=== PATIENT | female | born 1980 | race Caucasian/White ===

== ENCOUNTER → 2021-07-14 09:25 | Outpatient (BNVA) | payer BC, SELFPAY | PROVIDERS: PCP Internal Medicine; Visit Provider Internal Medicine | DX: E04.2 Nontoxic multinodular goiter (principal); E20.9 Hypoparathyroidism, unspecified; N92.6 Irregular menstruation, unspecified; E55.9 Vitamin D deficiency, unspecified; Z79.899 Other long term (current) drug therapy | CPT/HCPCS: 99202 ==

== ENCOUNTER 2021-07-31 08:22 | Outpatient (REF) | payer BC, SELFPAY ==
[2021-07-31 09:38] LABS: Estimated Average Glucose 105 mg/dL; Hemoglobin A1c % 5.3 %
[2021-07-31 09:55] LABS: Glucose Fasting 113 mg/dL (60-99)
[2021-07-31 10:04] LABS: Alanine Aminotransferase 16 U/L (0-31); Albumin Level 4.4 g/dL (3.5-5.0); Alkaline Phosphatase 60 U/L (39-117); Anion Gap 10 (12-20); Aspartate Amino Transferase 16 U/L (5-31); Bilirubin Total 0.5 mg/dL (0.0-1.0); Blood Urea Nitrogen 9 mg/dL (9-16); Calcium 8.8 mg/dL (8.4-10.2); Carbon Dioxide 23 mmol/L (22-29); Chloride 111 mmol/L (96-108); Cholesterol 151 mg/dL; Estimated Glomerular Filt Rate > 60; Glucose Random 110 mg/dL (60-115); HDL Cholesterol 42 mg/dL; LDL Cholesterol Calculated 95 mg/dl; Potassium 3.9 mmol/L (3.3-5.1); Sodium 140 mmol/L (135-145); Total Protein 7.3 g/dL (6.5-8.0); Triglycerides 72 mg/dL
[2021-07-31 10:11] LABS: Cortisol Random 5.9 ug/dL
[2021-07-31 10:14] LABS: Free T4 (Free Thyroxine) 0.98 ng/dL (0.71-1.85); HCG Quantitative < 2 mIU/mL; Thyroid Stimulating Hormone 0.73 uIU/mL (0.32-4.0); Vitamin D 25-OH Total 16.4 ng/mL (>30)
[2021-07-31 11:46] LABS: Glucose 1 Hour 208 mg/dL
[2021-07-31 11:51] LABS: Glucose 2 Hour 147 mg/dL
[2021-08-01 06:37] LABS: LDL Cholesterol Direct 94 mg/dL (<100)
[2021-08-01 08:31] LABS: DHEA Sulfate 164 mcg/dL (15-205); Follicle Stimulating Hormone 6.8 mIU/mL; Lutenizing Hormone 0.9 mIU/mL; Prolactin 6.9 ng/mL
[2021-08-02 16:25] LABS: Thyroglobulin 8.9 ng/mL
[2021-08-02 20:31] LABS: Sex Hormone Binding Globulin 21 nmol/L (17-124)
[2021-08-03 06:12] LABS: Thyroid Peroxidase Antibodies 1 IU/mL (<9)
[2021-08-03 18:16] LABS: Adrenocorticotropic Hormone 8 pg/mL (6-50)
[2021-08-06 16:07] LABS: Androstenedione 40 ng/dL
[2021-08-06 22:41] LABS: Testosterone, Free 1.2 pg/mL (0.1-6.4); Testosterone, Total 7 ng/dL (2-45)
[2021-08-07 19:32] LABS: Estradiol Ultra Sensitive 4 pg/mL
== END 2021-07-31 08:23 | disposition home or self-care (01) ==
LOC: HO.LAB 08:22
PROVIDERS: PCP Internal Medicine; Visit Provider Internal Medicine
DX: N92.6 Irregular menstruation, unspecified (principal); E04.2 Nontoxic multinodular goiter; E55.9 Vitamin D deficiency, unspecified
CPT/HCPCS: 36415; 80053; 80061; 82024; 82157; 82306; 82533; 82627; 82670; 83001; 83002; 83036; 83498; 83721; 84146; 84270; 84402; 84403; 84432; 84439; 84443; 84702; 86376

== ENCOUNTER 2021-08-05 14:29 | Outpatient (REF) | payer BC, SELFPAY ==
--- NOTE | ~2021-08-05 | US_ITS ---
EXAMINATION: US THYROID CLINICAL INFORMATION: Nontoxic multinodular goiter. COMPARISON: Ultrasound thyroid 05/12/2020 TECHNIQUE: Linear transducer grayscale and color Doppler examination with attention to the region of the thyroid. FINDINGS: SIZE: Measurements of the thyroid lobes and nodules are given in sagittal, anteroposterior and transverse dimensions respectively. Right Thyroid Lobe: 6.0 x 1.4 x 1.5 cm, volume 6.9 mL. Parenchyma: The gland echotexture is heterogeneous. Thyroid vascularity is normal. Left Thyroid Lobe: 5.97 X 1.72 x 1.46 cm, volume 7.9 mL. Parenchyma: The gland echotexture is heterogeneous. Thyroid vascularity is normal. Isthmus: 0.42 cm in maximum AP dimension. Estimated total number of nodules greater than or equal to 1 cm: 2. Third Loader nodules are described as follows: 1. Location: Isthmus Size: 1.1 x 0.74 x 1.0 cm, volume 0.43 mL. Nodule characteristics: Composition: 3 Echogenicity: Hypoechoic Shape: Wider Margins: Smooth (0). Echogenic Foci: Punctate echogenic foci (3). ACR TI-RADS total points: 7 ACR TI-RADS category: 5 2. Location: Right upper pole. Size: 2.1 x 0.83 x 1.0 cm, volume 0.94 mL. Nodule characteristics: Composition: Mixed cystic and solid (1). Echogenicity: Anechoic (0). Shape: Wider Margins: Smooth (0). Echogenic Foci: Rim calcification ACR TI-RADS total points: 3 ACR TI-RADS category: 3 3. Location: Right midpole. Size: 1.0 x 0.72 x 0.90 cm, volume 0.34 mL. Nodule characteristics: Composition: Solid (2). Echogenicity: Hypoechoic Shape: Wider Margins: Smooth (0). Echogenic Foci: None (0). ACR TI-RADS total points: 5 ACR TI-RADS category: 4 4. Location: Right midpole. Size: 0.60 x 0.53 x 0.50 cm, volume 0.8 mL. Nodule characteristics: Composition: Cystic(0). Echogenicity: Anechoic (0). Shape: Wider Margins: Round Echogenic Foci: None (0). ACR TI-RADS total points: 0 ACR TI-RADS category: 1 5. Location: Left upper pole. Size: 1.4 x 0.70 x 0.58 cm. Volume 0.29 mL. Nodule characteristics: Composition: Cystic Echogenicity: Anechoic Shape: Round Margin: Smooth. Echogenic foci: None ACR TI-RADS total points: 0 ACR TI-RADS category: 0. NODES: No lymphadenopathy is seen in the tissue surrounding the thyroid gland. US/US thyroid IMPRESSION: 1. Bilateral thyroid nodules the largest in the left upper pole is not suspicious. The rest of the nodules are nonsuspicious based on TI-RADS scoring. 2. Mild thyroid enlargement with heterogeneous appearance. ACR TI-RADS RECOMMENDATION REFERENCE: Ultrasound-guided fine-needle aspiration, followup ultrasound, no further follow up. * TR1 (0 point) and TR 2 (2 points): No FNA or follow up * TR3 (3 points): FNA if more than or equal to 2.5 cm in maximum dimension, followup ultrasound in 1, 3 and 5 years if 1.5 to 2.4 cm in maximum dimension. * TR4 (4-6 points): FNA if more than or equal to 1.5 cm in maximum dimension, followup ultrasound in 1, 2, 3 and 5 years if 1 to 1.4 cm in maximum dimension. * TR5 (more than or equal to 7 points): FNA if more than or equal to 1 cm in maximum dimension, followup ultrasound every year for 5 years if 0.5 to 0.9 cm in maximum dimension. * TR3, TR4 or TR5 nodules that are below the size threshold for follow up receive no follow up.
== END 2021-08-05 14:30 | disposition home or self-care (01) ==
LOC: HO.HMGCX 14:29
PROVIDERS: PCP Internal Medicine; Visit Provider Internal Medicine
DX: E04.2 Nontoxic multinodular goiter (principal)
CPT/HCPCS: 76536

== ENCOUNTER → 2021-08-23 09:04 | Outpatient (BNVA) | payer BC, SELFPAY | PROVIDERS: PCP Internal Medicine; Visit Provider Internal Medicine | DX: Z13.89 Encounter for screening for other disorder (principal) ==

== ENCOUNTER 2021-08-31 07:18 | Outpatient (REF) | payer BC, SELFPAY ==
[2021-08-31 09:17] LABS: Cortisol Random 7.7 ug/dL
[2021-09-02 10:26] LABS: CA 125 New Method 6 U/mL (<35); CA-125 6 U/mL (<35)
[2021-09-02 12:42] LABS: Adrenocorticotropic Hormone 6 pg/mL (6-50)
== END 2021-08-31 07:19 | disposition home or self-care (01) ==
LOC: HO.LAB 07:18
PROVIDERS: Absent Provider Internal Medicine; PCP Internal Medicine; Visit Provider Internal Medicine
DX: N83.202 Unspecified ovarian cyst, left side (principal); N92.6 Irregular menstruation, unspecified
CPT/HCPCS: 36415; 82024; 82533; 86304

== ENCOUNTER → 2021-10-21 12:52 | Outpatient (BNVA) | payer BC, SELFPAY | PROVIDERS: PCP Internal Medicine; Visit Provider Dietitian, Registered | DX: E66.9 Obesity, unspecified (principal); R73.03 Prediabetes; Z68.31 Body mass index [BMI] 31.0-31.9, adult | CPT/HCPCS: 97802 ==

== ENCOUNTER 2021-11-22 07:55 | Outpatient (REF) | payer BC, SELFPAY ==
[2021-11-23 07:26] LABS: Cortisol 30 Minute 31.2 mcg/dL; Cortisol 60 Minute 34.5 mcg/dL; Cortisol Baseline 11.9 mcg/dL
[2021-11-23 20:57] LABS: Adrenocorticotropic Hormone 14 pg/mL (6-50)
== END 2021-11-22 07:56 | disposition home or self-care (01) ==
LOC: HO.MDS 07:55
PROVIDERS: Visit Provider Internal Medicine
DX: E27.40 Unspecified adrenocortical insufficiency (principal)
CPT/HCPCS: 36415; 82024; 82533; 96374; J0834

== ENCOUNTER → 2021-12-20 13:23 | Outpatient (BNVA) | payer BC, SELFPAY | PROVIDERS: PCP Internal Medicine; Visit Provider Dietitian, Registered | DX: E66.9 Obesity, unspecified (principal); R73.03 Prediabetes; Z71.3 Dietary counseling and surveillance | CPT/HCPCS: 97803 ==

== ENCOUNTER 2022-02-17 07:56 | Outpatient (REF) | payer BC, SELFPAY ==
--- NOTE | 2022-02-17 08:56 | PM.OP ---
Brief Operative Note Date of Service: 02/17/22 Pre-op diagnosis: Multinodular Thyroid Procedure: This is doctor Shaista Thompson. This is an ultrasound-guided fine-needle aspiration report. Date of Examination: 02/17/2022 Indication: Multinodular Thyroid Porcedure: Procedure was explained to the patient. Alternatives, the risk and benefits were discussed. Written consent was obtained. A time-out was also obtained. After sterile preparation, fine-needle aspiration of an isthmus 1.1 cm thyroid nodule was performed using direct ultrasound guidance to confirm accurate needle placement. Three aspirations were made using 27 gauge needles. Samples were submitted for cytology. One pass was dedicated for [employer] sequencing rn physician office testing. The patient tolerated the procedure well. Aftercare instructions were provided. Impression: Uncomplicated fine needle aspiration biopsy of an isthmus 1.1 cm thyroid nodule under ultrasound guidance. Of note, US was completed of her thyroid and the remaining nodules did not meet indication for FNA biopsy. Her RMP nodule was a simple cyst as well as her LUP nodule. The remaining nodules were subcentimeter and did not meet indication for FNA biopsy. She does have a 0.9 cm RMP nodule with a slightly irregular border. Plan is to repeat US of the thyroid in 6 months time to monitor this, as it does not currently meet indication for FNA biopsy. Patient was in agreement with this plan of care. Surgeon: Shaista Thompson, DO Was an [employer] used for this Procedure?: No Estimated blood loss (mL): 0
== END 2022-02-17 07:57 | disposition home or self-care (01) ==
LOC: HO.US 07:56
PROVIDERS: PCP Internal Medicine; Visit Provider Internal Medicine
DX: E04.2 Nontoxic multinodular goiter (principal)
CPT/HCPCS: 10005; 88172; 88173

== ENCOUNTER 2022-03-03 14:53 | Emergency (ER) | payer BC, SELFPAY ==
--- NOTE | ~2022-03-03 | US_ITS ---
EXAMINATION: US VENOUS ULTRASOUND WITH DOPPLER LOWER EXTREMITY, RIGHT CLINICAL INFORMATION: Pain COMPARISON: None TECHNIQUE: Ultrasound of the deep veins is performed from the hip to the calf with compression sonography and color and pulse Doppler assessment. Spectral analysis with color-flow imaging is performed. FINDINGS: There is normal venous compression and respiratory variation and augmented flow. The visualized common femoral vein, superficial femoral vein, profunda femoral vein, popliteal vein, and the trifurcation region shows no evidence of deep venous thrombosis. There is no significant popliteal fossa cyst. If the patient's symptoms persist, followup ultrasound in 5 days 7 days might be of value to exclude proximal propagation from a non-visualized calf vein. US/US venous duplex LE RT IMPRESSION: No DVT demonstrated in the right lower extremity.
--- NOTE | ~2022-03-03 | XR_ITS ---
EXAMINATION: XR CHEST CLINICAL INFORMATION: Cough COMPARISON: None TECHNIQUE: 2 views of the chest were obtained. FINDINGS: The lungs are clear with no focal consolidation. No evidence of pneumothorax, pulmonary edema, or pleural effusions. The cardiomediastinal silhouette is unremarkable. No acute osseous findings. XR/XR chest 2V IMPRESSION: No acute cardiopulmonary findings.
--- NOTE | ~2022-03-03 | CT_ITS ---
EXAMINATION: CT ABDOMEN AND PELVIS WITH CONTRAST CLINICAL INFORMATION: Abnormal bleeding COMPARISON: None TECHNIQUE: Multidetector volumetric images were obtained from the superior aspect of the liver through the pubic symphysis following administration 85 mL of Omnipaque 350 intravenous contrast. Sagittal and coronal reformatted images were obtained on the technologist's workstation. Oral contrast: No This CT examination was performed using dose optimization techniques as appropriate, variously including the following: *Automated exposure control *Adjustment of mA and/or kV according to patient size (this includes techniques or standardized protocols for targeted exams where dose is matched to indication/reason for exam; i.e. extremities or head) *Use of iterative reconstruction technique DLP: 699 mGy-cm FINDINGS: LUNG BASES: Mild dependent atelectasis. LIVER, GALLBLADDER, AND BILIARY TREE: The liver is normal in size, shape, and attenuation. No focal hepatic lesion or biliary ductal dilatation is present. The gallbladder is unremarkable with no evidence of radiopaque gallstones, gallbladder wall thickening, or obvious pericholecystic inflammatory changes. PANCREAS: Unremarkable. SPLEEN: Unremarkable. ADRENAL GLANDS: Unremarkable. KIDNEYS AND URETERS: Bilateral nephrograms are symmetric. No obstructing calculus is seen. Mildly dilated renal pelvises and right ureter, of uncertain clinical significance. BLADDER: Unremarkable. GASTROINTESTINAL TRACT: No evidence of bowel obstruction or significant wall thickening. The appendix is unremarkable. No free air is seen. ABDOMINAL WALL: No significant hernia is appreciated. LYMPH NODES: Normal. VASCULAR: Unremarkable. PELVIC VISCERA: Unremarkable. Small volume of pelvic free fluid. OSSEOUS STRUCTURES: Unremarkable. CT/CT abdomen pelvis w IV con IMPRESSION: 1. Small volume of nonspecific pelvic free fluid, which may be physiologic. 2. Mildly dilated renal pelvises and right ureter, of uncertain clinical significance. No obstructing calculus is seen.
[2022-03-03 15:00] VITALS: BP 120/74; PULSE 110; O2SAT 99
[2022-03-03 15:04] VITALS: BP 114/84; PULSE 105; RESP 18; TEMP 37.2; O2SAT 99; BMI 31.0
[2022-03-03 16:00] LABS: Basophils Percent Auto 0.2 % (0-2); Eosinophils Percent Auto 0.1 % (0-4); Hematocrit 44.2 % (37.0-47.0); Hemoglobin 14.8 g/dl (12.0-16.0); Imm Gran Abs Auto 0.05 X10*3/uL (0.00-0.03); Imm Gran Pct Auto 0.4 % (0.0-0.4); Lymphocytes Absolute Auto 0.4 X10*3/uL (1.2-4.9); Lymphocytes Percent Auto 2.8 % (20-40); MANUAL DIFF FLAG SCAN; Mean Corpuscular HGB Conc 33.5 g/dl (31.0-35.0); Mean Corpuscular Hemoglobin 30.8 pg (27.0-33.0); Mean Corpuscular Volume 91.9 fL (80.0-98.0); Monocytes Absolute Auto 0.3 X10*3/uL (0.1-1.2); Monocytes Percent Auto 2.5 % (2-11); Neutrophils Absolute Auto 11.9 x10*3/uL (2.0-8.3); Platelet Count 219 X10*3/uL (160-400); Red Blood Count 4.81 X10*6/uL (4.20-5.50); Red Cell Distribution Width 12.5 % (11.0-16.0); SCAN SMEAR FLAG 1; White Blood Count 12.7 X10*3/uL (4.8-10.8)
[2022-03-03 16:11] LABS: D Dimer High Sensitivity < 150 NG/ML
[2022-03-03 16:14] LABS: Alanine Aminotransferase 23 U/L (0-31); Albumin Level 4.7 g/dL (3.5-5.0); Alkaline Phosphatase 73 U/L (39-117); Anion Gap 15 (12-20); Aspartate Amino Transferase 19 U/L (5-31); Bilirubin Direct 0.3 mg/dL (0.0-0.5); Bilirubin Total 0.6 mg/dL (0.0-1.0); Blood Urea Nitrogen 10 mg/dL (9-16); Calcium 9.4 mg/dL (8.4-10.2); Carbon Dioxide 21 mmol/L (22-29); Chloride 107 mmol/L (96-108); Creatinine Clr Calc Pharmacy 100.9; Estimated Glomerular Filt Rate > 60; Glucose Random 109 mg/dL (60-115); Potassium 4.3 mmol/L (3.3-5.1); Sodium 139 mmol/L (135-145); Total Protein 7.7 g/dL (6.5-8.0)
[2022-03-03 16:18] LABS: SLIDE REVIEW VERIFIED
[2022-03-03 18:51] VITALS: BP 120/57; PULSE 110; RESP 18; TEMP 36.4; O2SAT 99
--- NOTE | 2022-03-03 21:50 | ED_ITS ---
HPI - General Adult General Chief complaint: General Medical Stated complaint: LOW BP 120/74, HIGH HR [address] NICOLE PER EMS Time Seen by Provider: 03/03/22 21:50 Source: patient Mode of arrival: ambulatory Limitations: no limitations History of Present Illness HPI narrative: 41-year-old female presents for evaluation of hypotension, warm red calf on the right side, intermittent finger numbness, and abnormal vaginal bleeding for over a year. Onset (ago): year(s) Severity: mild Associated symptoms: denies other symptoms Related Data Home Medications Medication Instructions Recorded Confirmed etonogestrel 0.12 mg-ethinyl 1 vag ring vaginal Q4W 07/14/21 03/03/22 estradiol 0.015 mg/24 hr vaginal ring (NuvaRing) ferrous fumarate 325 mg (106 mg 325 mg PO DAILY 07/14/21 03/03/22 iron) tablet multivitamin (Multiple Vitamins 1 tab PO DAILY 07/14/21 03/03/22 tablet) Previous Rx's Medication Instructions Recorded cholecalciferol (vitamin D3) 50 50 mcg PO DAILY 30 days #30 caps 08/23/21 mcg (2,000 unit) capsule Allergies Allergy/AdvReac Type Severity Reaction Status Date / Time metronidazole Allergy Mild Swelling Verified 03/03/22 13:42 Penicillins Allergy Mild Swelling Verified 03/03/22 13:42 sulfamethoxazole Allergy Swelling Verified 03/03/22 13:42 [From Bactrim] trimethoprim [From Bactrim] Allergy Swelling Verified 03/03/22 13:42 Review of Systems Review of Systems: Constitutional: Positive hypotension, No Fever, No Chills ENT/Mouth: No Ear Pain, No Hoarseness, No sore throat Eyes: No Eye Pain, No Swelling, No Redness, No Foreign Body Cardiovascular: No Chest Pain, No SOB Respiratory: No Cough, No Dyspnea Gastrointestinal: No Nausea, No Vomiting, No Diarrhea, No abdominal Pain Genitourinary: Positive abnormal vaginal bleeding, No Dysuria, No Hematuria Musculoskeletal: No joint pain, No Myalgias, No Joint Swelling Skin: No Skin lacerations, No rash Neuro: No Weakness, positive right middle finger Numbness, No Paresthesias, No Loss of Consciousness, No Dizziness, No Headache Psych: No Anxiety/Panic, No Depression Heme/Lymph: no easy bruising, no Lymphadenopathy Endocrine: No Polyuria, No Polydipsia Yes all other systems are reviewed and are negative [facility] Past Medical History Attestation statement: The following information was validated with the patient. Source: old records reviewed Medical History (Updated 03/04/22 @ 01:08 by Miracle Damon NP) Hypotension Iron deficiency anemia Irregular menses Multinodular thyroid Obesity Prediabetes Vitamin D deficiency Surgical History Hx of vaginal surgery Family History Family History Father Medical history unknown Mother Medical history unknown Diabetes mellitus Paternal Uncle Cancer Diabetes mellitus Social History Social History Alcohol intake: current Alcohol intake frequency: does not drink Patient Tobacco Use Status: Never used Tobacco Advance Directives: No Advance Directives Information Provided: No Physical Exam ED Vital Signs: Vital Signs - 24 hr 03/03/22 15:04 03/03/22 18:51 03/03/22 22:30 Temperature 98.9 F 97.6 F Pulse Rate 105 H 110 H 98 Respiratory Rate 18 18 Blood Pressure 114/84 120/57 L 128/68 Pulse Oximetry 99 99 Oxygen Delivery Method Room Air Room Air 03/03/22 22:31 03/03/22 22:32 Temperature Pulse Rate 103 H 111 H Respiratory Rate Blood Pressure 136/70 126/76 Pulse Oximetry Oxygen Delivery Method BMI result Body Mass Index 31.0 Appearance: Alert. Oriented X3. No acute distress. Eyes: Pupils equal, round and reactive to light. ENT: Pharynx normal. Neck: Normal inspection. Neck supple. CVS: Tachycardic heart rate and rhythm. Pulses normal. Respiratory: No respiratory distress. Breath sounds normal. Abdomen: Soft and nontender. Skin: Skin warm and dry. Normal skin color. Normal skin turgor. Extremities: No lower extremity edema. Gait well-balanced well coordinated. Neuro: No motor deficit. No sensory deficit. Cranial nerves 2-12 intact. Course Course Course Narrative: 41-year-old female presents with multiple concerns, was sent in from her primary care's office for hypotension, question of possible blood clot to the right lower extremity, intermittent finger numbness on the right hand, and abnormal vaginal bleeding. Patient has had abnormal vaginal bleeding for year and a half, since August of 2020, has had a D&C, and multiple workups with negative findings. For the intermittent numbness to the right middle finger, patient has had intermittent numbness to bilateral upper extremities while breast feeding, and was diagnosed with Raynaud's of the breast. There has been improvement of t he numbness since she has stopped , her child is now 4 years old. There was a concern for blood clot to the right lower extremity, will order venous duplex. D-dimer was less than 150 which is considered negative. Patient has had upper respiratory symptoms off and on for a few weeks, will order chest x-ray, COVID RSV and influenza test. Will order CT scan of abdomen pelvis with contrast for abnormal vaginal bleeding. Lab values are unremarkable, white count is 12.7 which could possibly be a reactive marker. H&H is within normal limits although patient does have some abnormal vaginal bleeding. Chest x-ray is negative for acute findings. COVID and influenza are negative. Venous duplex is negative. 01:30 CT scan of abdomen pelvis are negative for acute findings requiring emergent intervention. I did discuss this in detail with the patient, although she is relieved that there is nothing significantly wrong, she still does not have any answers about what is causing her symptoms. I did suggest the patient follow up with [facility] for dysfunctional uterine bleeding. Patient verbalized understanding of and agrees to plan of care discharge home. Verbaliz ed understanding of signs and symptoms indicating need for emergent intervention. Medical Decision Making MDM Narrative Medical decision making narrative: DVT, viral syndrome Differential Diagnosis Differential Diagnosis: Endometriosis, adenomyosis, uterine fibroids Medical Records Medical records reviewed: Yes I reviewed the patient's medical records. Lab Data Lab results reviewed: Yes I reviewed the patient's lab results. Result diagrams: 03/03/22 15:50 03/03/22 15:50 Labs: Lab Results 03/03/22 03/03/22 03/03/22 Range/Units 15:50 15:50 15:50 WBC 12.7 H (4.8-10.8) X10*3/uL RBC 4.81 (4.20-5.50) X10*6/uL Hgb 14.8 (12.0-16.0) g/dl Hct 44.2 (37.0-47.0) % MCV 91.9 (80.0-98.0) fL MCH 30.8 (27.0-33.0) pg MCHC 33.5 (31.0-35.0) g/dl RDW 12.5 (11.0-16.0) % Plt Count 219 (160-400) X10*3/uL MPV 9.0 L (9.4-12.3) fL Immature Gran % (Auto) 0.4 (0.0-0.4) % Neut % (Auto) 94.0 H (45-73) % Lymph % (Auto) 2.8 L (20-40) % [place] % (Auto) 2.5 (2-11) % Eos % (Auto) 0.1 (0-4) % Baso % (Auto) 0.2 (0-2) % Lymph # (Auto) 0.4 L (1.2-4.9) X10*3/uL [place] # (Auto) 0.3 (0.1-1.2) X10*3/uL Eos # (Auto) 0.0 (0.0-0.4) X10*3/uL Baso # (Auto) 0.0 (0.0-0.2) X10*3/uL Abs Immat Gran (auto) 0.05 H (0.00-0.03) X10*3/uL Absolute Neuts (auto) 11.9 H (2.0-8.3) x10*3/uL Absolute Nucleated RBC 0.000 (0.0-0.012) X10*3/uL Nucleated RBC % (auto) 0.0 (0.0-0.2) /100WBC Smear Tech's Comments VERIFIED D-Dimer High Sensitivty < 150 NG/ML Sodium 139 (135-145) mmol/L Potassium 4.3 (3.3-5.1) mmol/L Chloride 107 (96-108) mmol/L Carbon Dioxide 21 L (22-29) mmol/L Anion Gap 15 (12-20) BUN 10 (9-16) mg/dL Creatinine 0.76 (0.5-1.4) mg/dL Estim Creat Clear Calc 100.9 Estimated GFR > 60 Random Glucose 109 (60-115) mg/dL Calcium 9.4 D (8.4-10.2) mg/dL Total Bilirubin 0.6 (0.0-1.0) mg/dL Direct Bilirubin 0.3 (0.0-0.5) mg/dL AST 19 (5-31) U/L ALT 23 (0-31) U/L Alkaline Phosphatase 73 D (39-117) U/L Total Protein 7.7 (6.5-8.0) g/dL Albumin 4.7 (3.5-5.0) g/dL Beta HCG, Quant < 2 mIU/mL Influenza Type A (PCR) (Negative) Influenza Type B (PCR) (Negative) RSV RNA Qual (PCR) (Negative) SARS-CoV-2 RNA (RT-PCR) (Negative) 03/03/22 Range/Units 22:17 WBC (4.8-10.8) X10*3/uL RBC (4.20-5.50) X10*6/uL Hgb (12.0-16.0) g/dl Hct (37.0-47.0) % MCV (80.0-98.0) fL MCH (27.0-33.0) pg MCHC (31.0-35.0) g/dl RDW (11.0-16.0) % Plt Count (160-400) X10*3/uL MPV (9.4-12.3) fL Immature Gran % (Auto) (0.0-0.4) % Neut % (Auto) (45-73) % Lymph % (Auto) (20-40) % [place] % (Auto) (2-11) % Eos % (Auto) (0-4) % Baso % (Auto) (0-2) % Lymph # (Auto) (1.2-4.9) X10*3/uL [place] # (Auto) (0.1-1.2) X10*3/uL Eos # (Auto) (0.0-0.4) X10*3/uL Baso # (Auto) (0.0-0.2) X10*3/uL Abs Immat Gran (auto) (0.00-0.03) X10*3/uL Absolute Neuts (auto) (2.0-8.3) x10*3/uL Absolute Nucleated RBC (0.0-0.012) X10*3/uL Nucleated RBC % (auto) (0.0-0.2) /100WBC Smear Tech's Comments D-Dimer High Sensitivty NG/ML Sodium (135-145) mmol/L Potassium (3.3-5.1) mmol/L Chloride (96-108) mmol/L Carbon Dioxide (22-29) mmol/L Anion Gap (12-20) BUN (9-16) mg/dL Creatinine (0.5-1.4) mg/dL Estim Creat Clear Calc Estimated GFR Random Glucose (60-115) mg/dL Calcium (8.4-10.2) mg/dL Total Bilirubin (0.0-1.0) mg/dL Direct Bilirubin (0.0-0.5) mg/dL AST (5-31) U/L ALT (0-31) U/L Alkaline Phosphatase (39-117) U/L Total Protein (6.5-8.0) g/dL Albumin (3.5-5.0) g/dL Beta HCG, Quant mIU/mL Influenza Type A (PCR) NEGATIVE (Negative) Influenza Type B (PCR) NEGATIVE (Negative) RSV RNA Qual (PCR) NEGATIVE (Negative) SARS-CoV-2 RNA (RT-PCR) NEGATIVE (Negative) Imaging Data Chest x-ray: Attestation: I personally reviewed and interpreted this imaging study as follows: Radiologist's impression: EXAMINATION: XR CHEST CLINICAL INFORMATION: Cough COMPARISON: None TECHNIQUE: 2 views of the chest were obtained. FINDINGS: The lungs are clear with no focal consolidation. No evidence of pneumothorax, pulmonary edema, or pleural effusions. The cardiomediastinal silhouette is unremarkable. No acute osseous findings. XR/XR chest 2V IMPRESSION: No acute cardiopulmonary findings. ? Venous duplex: Attestation: I personally reviewed and interpreted this imaging study as follows: Radiologist's impression: EXAMINATION:? US VENOUS ULTRASOUND WITH DOPPLER LOWER EXTREMITY, RIGHT CLINICAL INFORMATION:? Pain COMPARISON:? None TECHNIQUE: Ultrasound of the deep veins is performed from the hip to the calf with compression sonography and color and pulse Doppler assessment. Spectral analysis with color-flow imaging is performed. FINDINGS: There is normal venous compression and respiratory variation and augmented flow. The visualized common femoral vein, superficial femoral vein, profunda femoral vein, popliteal vein, and the trifurcation region shows no evidence of deep venous thrombosis. ? There is no significant popliteal fossa cyst. If the patient's symptoms persist, followup ultrasound in 5 days 7 days might be of value to exclude proximal propagation from a non-visualized calf vein. US/US venous duplex LE RT IMPRESSION: No DVT demonstrated in the right lower extremity. CT abdomen pelvis: Attestation: I personally reviewed and interpreted this imaging study as follows: Radiologist's impression: EXAMINATION: CT ABDOMEN AND PELVIS WITH CONTRAST? CLINICAL INFORMATION: Abnormal bleeding? COMPARISON: None? TECHNIQUE: Multidetector volumetric images were obtained from the superior aspect of the liver through the pubic symphysis following administration 85 mL of Omnipaque 350 intravenous contrast. Sagittal and coronal reformatted images were obtained on the technologist's workstation.? Oral contrast: No This CT examination was performed using dose optimization techniques as appropriate, variously including the following: *Automated exposure control *Adjustment of mA and/or kV according to patient size (this includes techniques or standardized protocols for targeted exams where dose is matched to indication/reason for exam; i.e. extremities or head) *Use of iterative reconstruction technique DLP: 699 mGy-cm FINDINGS: LUNG BASES: Mild dependent atelectasis.? LIVER, GALLBLADDER, AND BILIARY TREE: The liver is normal in size, shape, and attenuation. No focal hepatic lesion or biliary ductal dilatation is present. The gallbladder is unremarkable with no evidence of radiopaque gallstones, gallbladder wall thickening, or obvious pericholecystic inflammatory changes.? PANCREAS: Unremarkable.? SPLEEN: Unremarkable.? ADRENAL GLANDS: Unremarkable.? KIDNEYS AND URETERS: Bilateral nephrograms are symmetric. No obstructing calculus is seen. Mildly dilated renal pelvises and right ureter, of uncertain clinical significance. BLADDER: Unremarkable.? GASTROINTESTINAL TRACT: No evidence of bowel obstruction or significant wall thickening. The appendix is unremarkable. No free air is seen. ABDOMINAL WALL: No significant hernia is appreciated.? LYMPH NODES: Normal. VASCULAR: Unremarkable. PELVIC VISCERA: Unremarkable. Small volume of pelvic free fluid. OSSEOUS STRUCTURES: Unremarkable.? CT/CT abdomen pelvis w IV con IMPRESSION: 1.? Small volume of nonspecific pelvic free fluid, which may be physiologic. 2.? Mildly dilated renal pelvises and right ureter, of uncertain clinical significance. No obstructing calculus is seen. Discharge Plan Discharge Clinical Impression: Irregular menses, Hypotension Patient Disposition: Home, Self-Care Instructions: Dysfunctional Uterine Bleeding (ED), Hypotension (ED) Additional Instructions: You were evaluated for multiple concerns. During your stay in the emergency department your blood pressure was normal. We ruled out DVT, blood clot, to the right leg with a venous duplex. Venous duplex was negative for acute findings. You were evaluated for abnormal vaginal bleeding, CT scan of abdomen pelvis with contrast is negative for acute findings. Pelvic organs are within normal limi ts, shows a small amount of free fluid which is an unremarkable finding. Your chest x-ray is negative for acute findings. COVID influenza RSV test is negative. [facility] in [place]. [facility] general number [phone]. Thank you for choosing this emergency department for evaluation. Please follow-up with primary care physician as needed. Return to the emergency department for any new, concerning, or worsening symptoms. Prescriptions: No Action multivitamin [Multiple Vitamins] Tablet 1 tab PO DAILY ferrous fumarate 325 mg (106 mg iron) tablet 325 mg PO DAILY etonogestrel-ethinyl estradiol [NuvaRing] 0.12-0.015 mg/24 hr ring 1 vag ring vaginal Q4W Rx Instructions: leave in place for 3 weeks of a 4-week cycle cholecalciferol (vitamin D3) 50 mcg (2,000 unit) capsule 50 mcg PO DAILY 30 Days Qty: 30 11RF
[2022-03-03 22:30] VITALS: BP 128/68; PULSE 98
[2022-03-03 22:31] VITALS: BP 136/70; PULSE 103
[2022-03-03 22:32] VITALS: BP 126/76; PULSE 111
[2022-03-03 23:10] LABS: Influenza A PCR NEGATIVE (Negative); Influenza B PCR NEGATIVE (Negative); Resp Syncy Virus RNA Qual PCR NEGATIVE (Negative); SARS COV2 PCR INHOUSE NEGATIVE (Negative)
[2022-03-03 23:26] LABS: HCG Quantitative < 2 mIU/mL
[2022-03-04] MEDS: iohexoL 350 MG/ML 100 ML INFUS..BTL 85 ML IV (00:30)
== END 2022-03-04 02:43 | disposition home or self-care (01) ==
PROVIDERS: Emergency Medicine; Nurse Practitioner Family; Emergency Provider Internal Medicine; PCP Internal Medicine
DX: I95.9 Hypotension, unspecified (principal); N92.6 Irregular menstruation, unspecified; L53.9 Erythematous condition, unspecified; R20.0 Anesthesia of skin; R00.0 Tachycardia, unspecified; R05.9 Cough, unspecified; M79.604 Pain in right leg; E66.9 Obesity, unspecified; Z68.31 Body mass index [BMI] 31.0-31.9, adult; Z20.822 Contact with and (suspected) exposure to COVID-19
CPT/HCPCS: 0241U; 36415; 71046; 74177; 80048; 80076; 84702; 85025; 85379; 93971; 99283; 99284; Q9967

== ENCOUNTER → 2022-03-28 13:59 | Outpatient (BNVA) | payer BC, SELFPAY | PROVIDERS: PCP Internal Medicine; Visit Provider Dietitian, Registered | DX: E66.9 Obesity, unspecified (principal); R73.03 Prediabetes | CPT/HCPCS: 97803 ==

== ENCOUNTER 2022-08-16 12:47 | Outpatient (REF) | payer BC, SELFPAY ==
--- NOTE | ~2022-08-16 | US_ITS ---
EXAMINATION: US THYROID CLINICAL INFORMATION: Nontoxic multinodular goiter. COMPARISON: Ultrasound thyroid 08/05/2021. TECHNIQUE: Linear transducer grayscale and color Doppler examination with attention to the region of the thyroid. FINDINGS: SIZE: Measurements of the thyroid lobes and nodules are given in sagittal, anteroposterior and transverse dimensions respectively. Right Thyroid Lobe: 6.1 x 1.5 x 1.8 cm, volume 8.8 mL. Previously 6.0 x 1.4 x 1.5 cm, volume 6.9 mL. Parenchyma: The gland echotexture is heterogeneous. Thyroid vascularity is normal. Left Thyroid Lobe: 6.4 x 1.2 x 2.0 cm, volume 8.1 mL. Previously 6.0 x 1.7 x 1.5 cm, volume 11.9 mL. Parenchyma: The gland echotexture is homogeneous. Thyroid vascularity is normal. Isthmus: 0.26 cm in maximum AP dimension. Previously 0.42 cm. Estimated total number of nodules greater than or equal to 1 cm: 3. [employer] nodules are described as follows: 1. Location: Isthmus. Size: 1.0 x 0.70 x 1.0 cm, volume 0.40 mL. Previously: 1.1 x 0.74 x 1.0 cm, volume 0.43 mL. Nodule characteristics: Composition: Solid (2). Echogenicity: Hypoechoic (2). Shape: Not taller than wide (0). Margins: Smooth (0). Echogenic Foci: Punctate echogenic foci (3). ACR TI-RADS total points: 7 Previous: 7 ACR TI-RADS category: 5 Previous: 5 Significant change in size (>/= 20% in 2 dimensions and minimal increase of 2 mm or 50% or greater increase in volume): Change in features: Change in ACR TI-RADS risk category: 2. Location: Right upper. Size: 2.2 x 1.0 x 1.1 cm, volume 1.2 mL. Previously: 2.1 x 0.83 x 1.0 cm, volume 0.94 mL. Nodule characteristics: Composition: Mixed cystic and solid (1). Echogenicity: Anechoic (0). Shape: Not taller than wide (0). Margins: Smooth (0). Echogenic Foci: Peripheral calcifications (2). ACR TI-RADS total points: 3 Previous: 3 ACR TI-RADS category: 3 Previous: 3 Significant change in size (>/= 20% in 2 dimensions and minimal increase of 2 mm or 50% or greater increase in volume): Change in features: Change in ACR TI-RADS risk category: 3. Location: Right midpole. Size: 0.70 x 0.54 x 0.90 cm, volume 0.17 mL. Previously: 1.0 x 0.72 x 0.90 cm, volume 0.34 mL. Nodule characteristics: Composition: Spongiform (0). Echogenicity: 0 Shape: 0 Margins: 0 Echogenic Foci: 0 ACR TI-RADS total points: 0 Previous: 5 ACR TI-RADS category: 1 Previous: 4 Significant change in size (>/= 20% in 2 dimensions and minimal increase of 2 mm or 50% or greater increase in volume): Change in features: Change in ACR TI-RADS risk category: 4. Location: Right lower pole. Size: 0.75 x 0.45 x 0.61 cm, volume 0.11 mL. Previously: 0.76 x 0.52 x 0.52 cm, volume 0.11 mL. Nodule characteristics: Composition: Solid/almost completely solid (2). Echogenicity: Hypoechoic (2). Shape: Not taller than wide (0). Margins: Smooth (0). Echogenic Foci: None (0). ACR TI-RADS total points: 4 ACR TI-RADS category: 4 Significant change in size (>/= 20% in 2 dimensions and minimal increase of 2 mm or 50% or greater increase in volume): Change in features: Change in ACR TI-RADS risk category: 5. Location: Left upper. Size: 1.3 x 0.61 x 0.74 cm, volume 0.30 mL. Previously: 1.4 x 0.70 x 0.58 cm, volume 0.29 mL. Nodule characteristics: Composition: Cystic(0). ACR TI-RADS total points: 0 Previous: 0 ACR TI-RADS category: 1 Previous: 1 Significant change in size (>/= 20% in 2 dimensions and minimal increase of 2 mm or 50% or greater increase in volume): Change in features: Change in ACR TI-RADS risk category: NODES: No lymphadenopathy is seen in the tissue surrounding the thyroid gland. US/US thyroid IMPRESSION: Stable bilateral thyroid nodules. Isthmus nodule meets TI RADS criteria for fine-needle aspiration. This was performed on January 2022. ACR TI-RADS RECOMMENDATION REFERENCE: Ultrasound-guided fine-needle aspiration, followup ultrasound, no further follow up. * TR1 (0 point) and TR2 (2 points): No FNA or follow up * TR3 (3 points): FNA if more than or equal to 2.5 cm in maximum dimension, followup ultrasound in 1, 3 and 5 years if 1.5 to 2.4 cm in maximum dimension. * TR4 (4-6 points): FNA if more than or equal to 1.5 cm in maximum dimension, followup ultrasound in 1, 2, 3 and 5 years if 1 to 1.4 cm in maximum dimension. * TR5 (more than or equal to 7 points): FNA if more than or equal to 1 cm in maximum dimension, followup ultrasound every year for 5 years if 0.5 to 0.9 cm in maximum dimension. * TR3, TR4 or TR5 nodules that are below the size threshold for follow up receive no follow up.
== END 2022-08-16 12:48 | disposition home or self-care (01) ==
LOC: HO.HMGCX 12:47
PROVIDERS: PCP Internal Medicine; Visit Provider Internal Medicine
DX: E04.2 Nontoxic multinodular goiter (principal)
CPT/HCPCS: 76536

== ENCOUNTER 2022-08-29 14:42 | Outpatient (REF) | payer BC, SELFPAY ==
[2022-08-29 17:22] LABS: Free T4 (Free Thyroxine) 0.88 ng/dL (0.71-1.85); Thyroid Stimulating Hormone 1.16 uIU/mL (0.32-4.0)
== END 2022-08-29 14:43 | disposition home or self-care (01) ==
LOC: HO.LAB 14:42
PROVIDERS: Visit Provider Internal Medicine
DX: E04.2 Nontoxic multinodular goiter (principal)
CPT/HCPCS: 36415; 84439; 84443

== ENCOUNTER → 2022-09-01 14:11 | Outpatient (BNVA) | payer BC, SELFPAY | PROVIDERS: PCP Internal Medicine; Visit Provider Internal Medicine ==

== ENCOUNTER 2022-12-12 14:28 | Outpatient (AMB) | payer BC, SELFPAY ==
--- NOTE | 2022-12-12 14:37 | A.OFFVIS_ITS ---
Intake VS Expanded 12/12/22 14:38 Height 5 ft 4.2 in Weight 199 lb 15.348 oz BMI 34.1 Intake Visit Reasons: obesity Allergies metronidazole Allergy (Mild, Verified 09/01/22 14:23) Swelling Penicillins Allergy (Mild, Verified 09/01/22 14:23) Swelling sulfamethoxazole [From Bactrim] Allergy (Verified 09/01/22 14:23) Swelling trimethoprim [From Bactrim] Allergy (Verified 09/01/22 14:23) Swelling HPI Nutrition Presentation Details Pt presents for MNT for obesity. Pt presents with her children to the appt. Pt reports per her PCP, blood glucose within normal limits, no longer having pre DM, and cholesterol is WNL . Pt reports hx of chronic anemia, takes b12 injections every other day and iron supplements on a daily basis. Pt reports having swelling in her body and is following up with her PCP. Pt is looking for various meal plan ideas Most Recent Diabetes Results: Creatinine 0.76 mg/dL (0.5-1.4) 03/03/22 Blood Urea Nitrogen 10 mg/dL (9-16) 03/03/22 Sodium 139 mmol/L (135-145) 03/03/22 Potassium 4.3 mmol/L (3.3-5.1) 03/03/22 Chloride 107 mmol/L (96-108) 03/03/22 Carbon Dioxide 21 mmol/L (22-29) L 03/03/22 Calcium 9.4 mg/dL (8.4-10.2) 03/03/22 AST 19 U/L (5-31) 03/03/22 ALT 23 U/L (0-31) 03/03/22 Total Protein 7.7 g/dL (6.5-8.0) 03/03/22 Albumin 4.7 g/dL (3.5-5.0) 03/03/22 [facility] Medical History Hypotension Iron deficiency anemia Irregular menses Multinodular thyroid Obesity Prediabetes Vitamin D deficiency Surgical History Hx of carcinoma of bladder Hx of vaginal surgery Family History Father Medical history unknown Mother Medical history unknown Paternal Uncle Diabetes mellitus Bladder cancer Social History Alcohol intake: current Alcohol intake frequency: does not drink Patient Tobacco Use Status: Never used Tobacco Assessment & Plan Assessment & Plan (1) Obesity: Code(s): E66.9 - Obesity, unspecified Plan: Educate Pt on 1500 - 1600 [place] meal plan ? Used wt : 85 kg Est kcal as per MSJ: 2090- = 1591(40% carb, 30% fat/prot) Est fluid needs: 2125 ml/d (25 ml/kg bw) Rec fiber: increase to 8-10 g per day and gradually increase to 25 g/d as tolerated Rec Na: < 2000 mg /d Educate patient on: (R= Reviewed, V = verbalizes understanding N/R= Needs review N/A= not applicable) * Food sources of carbohydrates and serving adequate serving sizes : R V * Difference between complex carbohydrates and simple carbohydrates, role of fiber: R V * Differences between fats (MUFA/PUFA/saturated fats, trans fats) and food sources of various fats: R * Food sources of sodium and salt and healthy modifications for heart health and kidney health: R * Vitamins and minerals: N/R * How to interpret food labels: R V (focused on Na) * Healthy Plate method concept: R V * Physical activity: benefits and precaution: R V Plan Educate patient on: (R= Reviewed, V = verbalizes understanding N/R= Needs review N/A= not applicable) * Food sources of carbohydrates and serving adequate serving sizes : R V * Difference between complex carbohydrates and simple carbohydrates, role of fiber: R V * Differences between fats (MUFA/PUFA/saturated fats, trans fats) and food sources of various fats: R * Food sources of sodium and salt and healthy modifications for heart health and kidney health: R V * Vitamins and minerals: N/R * How to interpret food labels: R V (focused on sodium, carbs) * Healthy Plate method concept: R V * Physical activity: benefits and precaution: R V Patient Instructions: Continue working on following 1500 [place] meal plan, choosing low sodium and low fat food options. Keep physically active as tolerated, goal 150 minutes per week Keep hydrated by choosing water, low sugar/no sodium beverages with meals /snacks aim at 60 -75 oz per day unless otherwise specified by your doctor. Coding Level of Care Code Nutr Indiv Subseq (26029) Diagnoses Obesity E66.9 Time Spent (min) 20
[2022-12-12 14:38] VITALS: BMI 34.1
== END 2022-12-12 15:22 | disposition home or self-care (01) ==
PROVIDERS: PCP Internal Medicine; Visit Provider Dietitian, Registered
DX: E66.9 Obesity, unspecified (principal)

== ENCOUNTER → 2022-12-12 14:28 | Outpatient (BNVA) | payer BC, SELFPAY | PROVIDERS: Visit Provider Dietitian, Registered | DX: E66.9 Obesity, unspecified (principal); D50.9 Iron deficiency anemia, unspecified; E55.9 Vitamin D deficiency, unspecified; Z68.34 Body mass index [BMI] 34.0-34.9, adult; Z71.3 Dietary counseling and surveillance | CPT/HCPCS: 97803 ==

== ENCOUNTER 2023-08-31 14:29 | Outpatient (REF) | payer BC, SELFPAY ==
--- NOTE | ~2023-08-31 | US_ITS ---
EXAMINATION: US THYROID CLINICAL INFORMATION: Nontoxic multinodular goiter. COMPARISON: Ultrasound soft tissue head/neck thyroid dated 08/16/2022 and 08/05/2021. TECHNIQUE: Linear transducer grayscale and color Doppler examination with attention to the region of the thyroid. FINDINGS: SIZE: Measurements of the thyroid lobes and nodules are given in sagittal, anteroposterior and transverse dimensions respectively. Right Thyroid Lobe: 5.6 x 1.9 x 2.5 cm, volume 13.6 mL. Previously 6.1 x 1.5 x 1.8 cm, volume 8.8 mL. Parenchyma: The gland echotexture is heterogeneous. Thyroid vascularity is normal. Left Thyroid Lobe: 5.1 x 1.3 x 1.7 cm, volume 6.1 mL. Previously 6.4 x 1.2 x 2.0 cm, volume 8.1 mL. Parenchyma: The gland echotexture is heterogeneous. Thyroid vascularity is normal. Isthmus: 0.38 cm in maximum AP dimension. Previously 0.26 cm. Estimated total number of nodules greater than or equal to 1 cm: 2. Shaker Tender nodules are described as follows: 1. Location: Right superior. Size: 2.3 x 0.8 x 1.4 cm, volume 1.4 mL. Previously: 2.2 x 1.0 x 1.1 cm, volume 1.2 mL. Nodule characteristics: Composition: Cystic(0). ACR TI-RADS total points: 0 Previous: 3 ACR TI-RADS category: 1 Previous: 3 Significant change in size (>/= 20% in 2 dimensions and minimal increase of 2 mm or 50% or greater increase in volume): No Change in features: Yes Change in ACR TI-RADS risk category: Yes 2. Location: Right mid. Size: 0.7 x 0.6 x 0.6 cm, volume 0.1 mL. Previously: 0.7 x 0.5 x 0.9 cm, volume 0.2 mL. Nodule characteristics: Composition: Solid (2). Echogenicity: Isoechoic (1). Shape: Not taller than wide (0). Margins: Smooth (0). Echogenic Foci: Peripheral calcifications (2). ACR TI-RADS total points: 5 Previous: 0 ACR TI-RADS category: 4 Previous: 1 Significant change in size (>/= 20% in 2 dimensions and minimal increase of 2 mm or 50% or greater increase in volume): No Change in features: Yes Change in ACR TI-RADS risk category: Yes 3. Location: Right inferior. Size: 0.5 x 0.4 x 0.6 cm, volume 0.1 mL. Previously: 0.8 x 0.5 x 0.6 cm, volume 0.1 mL. Nodule characteristics: Composition: Solid (2). Echogenicity: Hypoechoic (2). Shape: Not taller than wide (0). Margins: Smooth (0). Echogenic Foci: None (0). ACR TI-RADS total points: 4 Previous: 4 ACR TI-RADS category: 4 Previous: 4 Significant change in size (>/= 20% in 2 dimensions and minimal increase of 2 mm or 50% or greater increase in volume): No Change in features: No Change in ACR TI-RADS risk category: No 4. Location: Left superior. Size: 1.3 x 0.7 x 0.9 cm, volume 0.4 mL. Previously: 1.3 x 0.6 x 0.7 cm, volume 0.3mL. Nodule characteristics: Composition: Cystic(0). ACR TI-RADS total points: 0 Previous: 0 ACR TI-RADS category: 1 Previous: 1 Significant change in size (>/= 20% in 2 dimensions and minimal increase of 2 mm or 50% or greater increase in volume): No Change in features: No Change in ACR TI-RADS risk category: No 5. Location: Left mid. Size: 0.4 x 0.4 x 0.4 cm, volume 0.2 mL. Previously: Not seen on the previous study. Nodule characteristics: Composition: Solid (2). Echogenicity: Hypoechoic (2). Shape: Not taller than wide (0). Margins: Smooth (0). Echogenic Foci: None (0). ACR TI-RADS total points: 4 ACR TI-RADS category: 4 NODES: No lymphadenopathy is seen in the tissue surrounding the thyroid gland. US/US thyroid IMPRESSION: 1. Bilateral thyroid nodules are seen, as detailed. No specific thyroid follow-up imaging is recommended. 2. There is an asymmetric goiter, right lobe greater than left. 3. There is heterogeneous thyroid echotexture, which can be associated with thyroiditis. ACR TI-RADS RECOMMENDATION REFERENCE: Ultrasound-guided fine-needle aspiration, follow up ultrasound, no further followup. * TR1 (0 point) and TR2 (2 points): No FNA or followup * TR3 (3 points): FNA if more than or equal to 2.5 cm in maximum dimension, follow up ultrasound in 1, 3 and 5 years if 1.5 to 2.4 cm in maximum dimension. * TR4 (4-6 points): FNA if more than or equal to 1.5 cm in maximum dimension, follow up ultrasound in 1, 2, 3 and 5 years if 1 to 1.4 cm in maximum dimension. * TR5 (more than or equal to 7 points): FNA if more than or equal to 1 cm in maximum dimension, follow up ultrasound every year for 5 years if 0.5 to 0.9 cm in maximum dimension. * TR3, TR4 or TR5 nodules that are below the size threshold for follow up receive no followup.
== END 2023-08-31 14:30 | disposition home or self-care (01) ==
LOC: HO.US 14:29
PROVIDERS: PCP Internal Medicine; Visit Provider Internal Medicine Endocrinology, Diabetes & Metabolism
DX: E04.2 Nontoxic multinodular goiter (principal)
CPT/HCPCS: 76536

== ENCOUNTER 2023-10-11 15:46 | Outpatient (AMB) | payer BC, SELFPAY ==
[2023-10-11 16:08] VITALS: BP 118/54; PULSE 80; BMI 32.8
--- NOTE | 2023-10-11 16:08 | MHC.OFFVIS ---
Vital Signs 10/11/23 16:08 Height 5 ft 4.2 in Weight 192 lb 7.417 oz BMI 32.8 BP 118/54 L Blood Pressure Location Lt brachial Position Sitting Pulse 80 Pulse Source Pulse Oximeter Intake Visit Reasons: F/U NTMNG-confirmed Intake Note: Patient present today for NTMNG follow up visit. Aircraft Fuselage Framer Required: No Accompanied by: Self / Same As Patient Allergies metronidazole Allergy (Mild, Verified 10/11/23 16:14) Swelling Penicillins Allergy (Mild, Verified 10/11/23 16:14) Swelling sulfamethoxazole [From Bactrim] Allergy (Verified 10/11/23 16:14) Swelling trimethoprim [From Bactrim] Allergy (Verified 10/11/23 16:14) Swelling Medication List - Last Reconciled 10/11/23 by Roque Muñoz MD cholecalciferol (vitamin D3) 50 mcg PO DAILY 30 days etonogestrel-ethinyl estradiol 0.12-0.015 mg/24 hr (NuvaRing) 1 vag ring vaginal Q4W ferrous fumarate 325 mg PO DAILY multivitamin (Multiple Vitamins tablet) 1 tab PO DAILY HPI Comments Details: 43 YO F with PMHx Multinodular thyroid, hypothyroidism, the patient last saw Dr. Mcnamara on 09/01/2022 1. Multinodular Thyroid: Was initially diagnosed with multinodular thyroid many years ago with thyroid US revealing multiple bilateral nodules. She states she did have an FNA biopsy many years ago, solely with aspiration of cystic fluid. She does report a history of hypothyroidism many years ago, and was on levothyroxine. She then became hyperthyroid after her when she did not decrease the dose back to her pre- dose. She has remained off levothyroxine since that time. TFTs are WNL currently. She did have a recent thyroid US which revealed multiple nodules, many meeting indication for FNA biopsy. She underwent FNA biopsy by ga 02/17/2022 of her Isthmus 1.1 cm thyroid nodule with benign cytology. She had an additional 0.9 cm RMP nodule with a slightly irregular border. Her RMP and LUP nodules were otherwise cystic and did not meet indication for FNA biopsy. Plan was to repeat an ultrasound in 6 months time. Currently denies any dysphagia or hoarseness of voice. She does complain of fatigue and hair loss. She denies any other symptoms of hyper or hypothyroidism. Denies any history of head or neck irradiation. Denies any family history of thyroid cancer. She reports menorrhagia for the past 1 year, with constant daily menses. She was diagnosed with iron deficiency anemia secondary to this and did receive IV Iron treatments. She also had an endometrial ablation in August of 2021. She then was referred to Urology and was recently diagnosed with bladder cancer. After our initial visit she underwent a full biochemical evaluation for hyperandrogenism, which was WNL. AM cortisol was low, but this was checked slightly too late in the morning. Repeat remained low, but cosyntropin stim test was completely WNL. Her 2 hour OGTT revealed prediabetes. She refused Metformin and is now following with Nutrition. She has had 2 successful pregnancies. The first she conceived spontaneously. The second she required Clomid. She does report GDM with her second . Thyroid US: 08/16/2022 Right Thyroid Lobe: 6.1 x 1.5 x 1.8 cm, volume 8.8 mL. Previously 6.0 x 1.4 x 1.5 cm, volume 6.9 mL. Parenchyma: The gland echotexture is heterogeneous. Thyroid vascularity is normal. Left Thyroid Lobe: 6.4 x 1.2 x 2.0 cm, volume 8.1 mL. Previously 6.0 x 1.7 x 1.5 cm, volume 11.9 mL. Parenchyma: The gland echotexture is homogeneous. Thyroid vascularity is normal. Isthmus: 0.26 cm in maximum AP dimension. Previously 0.42 cm. Estimated total number of nodules greater than or equal to 1 cm: 3. Expenditure Requisition Clerk nodules are described as follows: 1.? Location: Isthmus. ?? ? Size: 1.0 x 0.70 x 1.0 cm, volume 0.40 mL. ?? ? Previously: 1.1 x 0.74 x 1.0 cm, volume 0.43 mL. ?? ? Nodule characteristics: ?? ? Composition: Solid (2). ?? ? Echogenicity: Hypoechoic (2). ?? ? Shape: Not taller than wide (0). ?? ? Margins: Smooth (0). ?? ? Echogenic Foci: Punctate echogenic foci (3). ?? ? ACR TI-RADS total points: 7 Previous: 7 ?? ? ACR TI-RADS category: 5 Previous: 5 ? Significant change in size (>/= 20% in 2 dimensions and minimal increase of 2 mm or 50% or greater increase in volume): ?? ? Change in features: ?? ? Change in ACR TI-RADS risk category: 2.? Location: Right upper. ?? ? Size: 2.2 x 1.0 x 1.1 cm, volume 1.2 mL. ?? ? Previously: 2.1 x 0.83 x 1.0 cm, volume 0.94 mL. ?? ? Nodule characteristics: ?? ? Composition: Mixed cystic and solid (1). ?? ? Echogenicity: Anechoic (0). ?? ? Shape: Not taller than wide (0). ?? ? Margins: Smooth (0). ?? ? Echogenic Foci: Peripheral calcifications (2). ?? ? ACR TI-RADS total points: 3 Previous: 3 ?? ? ACR TI-RADS category: 3 Previous: 3 ? Significant change in size (>/= 20% in 2 dimensions and minimal increase of 2 mm or 50% or greater increase in volume): ?? ? Change in features: ?? ? Change in ACR TI-RADS risk category: 3.? Location: Right midpole. ?? ? Size: 0.70 x 0.54 x 0.90 cm, volume 0.17 mL. ?? ? Previously: 1.0 x 0.72 x 0.90 cm, volume 0.34 mL. ?? ? Nodule characteristics: ?? ? Composition: Spongiform (0). ?? ? Echogenicity: 0 ?? ? Shape: 0 ?? ? Margins: 0 ?? ? Echogenic Foci: 0 ?? ? ACR TI-RADS total points: 0 Previous: 5 ?? ? ACR TI-RADS category: 1 Previous: 4 ? Significant change in size (>/= 20% in 2 dimensions and minimal increase of 2 mm or 50% or greater increase in volume): ?? ? Change in features: ?? ? Change in ACR TI-RADS risk category: 4.? Location: Right lower pole. ?? ? Size: 0.75 x 0.45 x 0.61 cm, volume 0.11 mL. ?? ? Previously: 0.76 x 0.52 x 0.52 cm, volume 0.11 mL. ?? ? Nodule characteristics: ?? ? Composition: Solid/almost completely solid (2). ?? ? Echogenicity: Hypoechoic (2). ?? ? Shape: Not taller than wide (0). ?? ? Margins: Smooth (0). ?? ? Echogenic Foci: None (0). ?? ? ACR TI-RADS total points: 4 ?? ? ACR TI-RADS category: 4 ? Significant change in size (>/= 20% in 2 dimensions and minimal increase of 2 mm or 50% or greater increase in volume): ?? ? Change in features: ?? ? Change in ACR TI-RADS risk category: 5.? Location: Left upper. ?? ? Size: 1.3 x 0.61 x 0.74 cm, volume 0.30 mL. ?? ? Previously: 1.4 x 0.70 x 0.58 cm, volume 0.29 mL. ?? ? Nodule characteristics: ?? ? Composition: Cystic(0). ? ? ? ACR TI-RADS total points: 0 Previous: 0 ?? ? ACR TI-RADS category: 1 Previous: 1 ? Significant change in size (>/= 20% in 2 dimensions and minimal increase of 2 mm or 50% or greater increase in volume): ?? ? Change in features: ?? ? Change in ACR TI-RADS risk category: NODES: No lymphadenopathy is seen in the tissue surrounding the thyroid gland. Labs: Laboratory Tests 08/29/22 14:59 TSH 1.16 Free T4 0.88 No obstructive sx . PFSH Medical History Hypotension Iron deficiency anemia Irregular menses Multinodular thyroid Obesity Prediabetes Vitamin D deficiency Surgical History Hx of carcinoma of bladder Hx of vaginal surgery Family History Father Medical history unknown Mother Medical history unknown Paternal Uncle Diabetes mellitus Bladder cancer Social History Alcohol intake: current Alcohol intake frequency: does not drink Patient Tobacco Use Status: Never used Tobacco Physical Exam Vital Signs: Last Vital Signs Pulse 80 10/11/23 16:08 BP 118/54 L 10/11/23 16:08 BMI result Body Mass Index 32.8 Const Other: Thyroid gland is normal size weighs about 15 g. There are no palpable thyroid nodules Assessment & Plan Assessment & Plan (1) Multinodular thyroid: Code(s): E04.2 - Nontoxic multinodular goiter Category: Medical Plan: This 43-year-old white female with a history of multinodular goiter status post FNA of an isthmus nodule with benign cytology. Other nodules are cystic and unchanged in size on recent ultrasound and of low malignancy characteristic. She appears to be clinically euthyroid Will recheck TSH and free T4 that was previously performed 1 month ago outside lab. Assuming above is normal, patient returned to the care of her primary care provider who can check another thyroid ultrasound about 2-3 years time if there is any significant change in the size or characteristics of the nodules, patient referred back to endocrinology Coding Level of Care Code Est Pt Level 3 (13879) Diagnoses Multinodular thyroid E04.2
== END 2023-10-11 16:48 | disposition home or self-care (01) ==
PROVIDERS: PCP Internal Medicine; Visit Provider Internal Medicine Endocrinology, Diabetes & Metabolism
DX: E04.2 Nontoxic multinodular goiter (principal)
CPT/HCPCS: 99213

== ENCOUNTER → 2023-10-11 15:46 | Outpatient (BNVA) | payer BC, SELFPAY | PROVIDERS: PCP Internal Medicine; Visit Provider Internal Medicine Endocrinology, Diabetes & Metabolism ==